=== PATIENT | male | born 1975 | race African-American/Black ===

== ENCOUNTER 2018-05-28 00:29 | Emergency (ER) | payer MEDICAID ==
[~2018-05-28] VITALS: Ht 160 cm; Wt 61.2 kg
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
--- NOTE | 2018-05-28 01:19 | NUR ---
ED Nurse Note: Patietn currently undergoing staple procedure to bring wound edges together.
[2018-05-28] MEDS ORDERED: IBUPROFEN600 MG ORAL (01:43)
--- NOTE | 2018-05-28 01:47 | NUR ---
ED Nurse Note: Patient cleared for discharge, patient is ambulatory with steady gait, A&Ox4, ID band removed, Patient verbalized understanding of discharge instructions. Patient departed with personal belongings accompanied by daughter.
[2018-05-28 01:56] VITALS: BP 118/76
== END 2018-05-28 01:47 | disposition home or self-care (01) ==
LOC: EMR 01:09
DX: S01.01XA Laceration without foreign body of scalp, initial encounter (principal); S01.111A Laceration without foreign body of right eyelid and periocular area, initial encounter; X58.XXXA Exposure to other specified factors, initial encounter; Y92.511 Restaurant or cafe as the place of occurrence of the external cause; F10.129 Alcohol abuse with intoxication, unspecified
CPT/HCPCS: 12002; 12011; 99284; Z7502